=== PATIENT | female | born 1970 | race Two or more races ===

== ENCOUNTER 2020-11-24 08:24 | Emergency (ER) | payer OTHER ==
[~2020-11-24] VITALS: Ht 157.5 cm; Wt 104.3 kg
[2020-11-24] MEDS ORDERED: METFORMIN HCL1000 M2 (08:29)
[2020-11-24] MEDS ORDERED: VASOTEC20 M1 (08:30)
[2020-11-24] MEDS ORDERED: PEPCID AC20 MG (08:30)
[2020-11-24] MEDS ORDERED: ACTOS15 MG (08:30)
== END 2020-11-24 17:13 | disposition home or self-care (01) ==
LOC: ER 08:24
DX: K29.00 Acute gastritis without bleeding (principal)